=== PATIENT | male | born 1955 | race Caucasian/White ===

== ENCOUNTER 2020-06-14 08:16 | Inpatient (IN) | payer BC, OTHER ==
[2020-06-14] MEDS ORDERED: Nitroglycerin 2% Ointment 1 INCH/1 GM Packet ONE (08:32)
--- NOTE | 2020-06-14 08:37 | RAD ---
XR Chest 1 View Portable HISTORY: Chest pain COMPARISON: 07/10/2013 FINDINGS: The heart size is normal. The lungs are well expanded without focal areas of consolidation, pneumothorax or pleural effusions. IMPRESSION: No radiographic evidence of acute cardiopulmonary process.
[2020-06-14 08:50] LABS: #Eosinphils 0.1 thou/uL (0.0-0.7); #Lymphocytes 0.9 thou/uL (1.20-3.40); #Monocytes 0.8 thou/uL (0.11-0.59); #Neutrophils 9.8 thou/uL (1.40-6.50); %Basophils 0.1 % (0.0-1.0); %Eosinophils 0.6 % (0.0-10.0); %Lymphocytes 7.6 % (21.0-51.0); %Monocytes 6.7 % (0.0-10.0); Hemoglobin 16.8 g/dL (14.0-18.0); Mean Corpuscular HGB CONC 34.7 g/dL (32.0-36.0); Mean Corpuscular Hemoglobin 31.6 pg (27.0-31.0); Mean Corpuscular Volume 91.1 fL (78.0-98.0); Mean Platelet Volume 7.6 fL (7.4-10.4); Platelet Count 239 thou/uL (130-400); RBC Distribution Width 12.4 % (11.5-14.5); Red Blood Cell (RBC) Count 5.33 mill/uL (4.70-6.10); White Blood Cell (WBC) Count 11.5 thou/uL (4.8-10.8)
[2020-06-14 09:07] LABS: ALT (SGPT) 16 U/L (8-55); AST (SGOT) 17 U/L (5-34); Albumin 4.3 g/dL (3.4-4.8); Alkaline Phosphatase 79 U/L (40-110); Anion Gap 15 mmol/L (10-20); BUN (Urea Nitrogen) 13 mg/dL (8.4-25.7); Bilirubin, Total 0.9 mg/dL (0.2-1.2); CK (CPK) 118 U/L (30-200); Calc. Creatinine Clearance 0 mL/min (70-130); Calcium 9.4 mg/dL (7.8-10.44); Carbon Dioxide 25 mmol/L (23-31); Chloride 105 mmol/L (98-107); Estimated GFR-MDRD 57; Globulin 3.3 g/dL (2.4-3.5); Glucose 140 mg/dL (80-115); Lipase 16 U/L (8-78); Potassium 3.7 mmol/L (3.5-5.1); Protein, Total 7.6 g/dL (5.8-8.1); Sodium 141 mmol/L (136-145)
[2020-06-14] MEDS ORDERED: Fentanyl 100 MCG/2 ML VIAL ONE (09:31)
[2020-06-14] MEDS ORDERED: Enoxaparin Sodium 30 MG/0.3 ML SYRINGE ONE (11:25)
[2020-06-14] MEDS ORDERED: Enoxaparin Sodium 80 MG/0.8 ML SYRINGE ONE (11:25)
--- NOTE | 2020-06-14 11:34 | CT ---
CTA CHEST AND ABDOMEN WITH IV CONTRAST AND 3D POSTPROCESSING USING AORTIC DISSECTION PROTOCOL: Date: 06/14/2020 HISTORY: Chest pain. COMPARISON: CT chest with IV contrast dated 12/04/2016 and CTA abdomen dated 04/10/2016. FINDINGS: There are vascular calcifications without evidence of aneurysmal dilatation of the thoracoabdominal a nya. The aortic lumen is well opacified without internal flap to suggest dissection. There is good f low in the celiac axis, SMA and RISHABH. There is a mild stenosis at the origin of the left renal artery. Coronary artery calcifications are present. There is interval increase in size of the prevascular lymph node since 2017 measuring 10.0 mm. Pretra cheal lymph node is also enlarged measuring 11.0 mm. No pericardial or pleural effusions are seen. There are dependent changes in the lung bases. Bullous changes are again noted. There are patchy ground-glass opacities in the right lower lobe. Multiple liver cysts are again seen and stable since 2016. No calcified gallstones are present. The s olid organs are stable. No free air, free fluid, or lymphadenopathy seen in the abdomen. A normal noemi earing appendix is present. The small bowel loops are not abnormally dilated. There are degenerative changes in the thoracolumbar spine. IMPRESSION: 1. No CT evidence of aortic dissection. 2. Mild mediastinal lymphadenopathy. 3. Ground-glass infiltrates in the right lower lobe. 4. Liver cysts. 5. Mild left renal artery stenosis. POS: [facility]
--- NOTE | 2020-06-14 12:18 | PDOC.HHP ---
Hospitalist HPI - History of Present Illness Chest pain History of Present Illness: This is a 64-year-old male patient with a history of MT, moderate bilateral internal carotid stenosis, hypertension who presents for evaluation of substernal chest pain that has been intermittent this morning. The pain was located in the substernal area 10/10 intensity initially lasted a few minutes only to recur. The pain did not radiate and no association with nausea or diaphoresis. He took his full dose of aspirin. He notes having had intermittent cough for the past couple of days which has been nonproductive. Denies any associated fevers however had some shortness of breath with the chest pain. He presented to the ED for further evaluation. He denies any exposure to Covid Of note he had an Cardiac catheterization with drug-eluting stent placement was done on 07/10/2013 to the LAD. He has been on dual antiplatelet therapy with aspirin and clopidogrel with atorvastatin. He also has extensive atherosclerotic plaques of the left internal carotid artery with a greater than 70% stenosis noted on 11/13/2016. As presentation his blood pressure was 128/92, pulse 85, respiratory rate 25, temperature 99.4 saturating 95% on 2 L oxygen. His labs showed a troponin of 0.07, D-dimer 4.13 WBC elevated at 11.5. Chest x- ray showed no evidence of acute cardiopulmonary process. EKG showed sinus rhythm with premature atrial complexes, left atrial enlargement and left anterior fascicular block with left ventricular hypertrophy Given his high D-dimer he had a CTA for aortic dissection which showed no CT evidence of aortic dissection however notable for mild mediastinal lymphadenopathy, groundglass infiltrates in the right lower lobe of the lung, liver cysts and mild left renal artery stenosis. Covid test pending. He was given Lovenox 1 mg/kg, nitroglycerin. Hospitalist team was consulted for admission. Hospitalist ROS - Review of Systems Constitutional: denies: fever, chills, sweats, weakness Respiratory: reports: cough, dry, shortness of breath, SOB with excertion. denies: hemoptysis Gastrointestinal: denies: nausea, vomiting, abdominal pain, diarrhea Genitourinary: denies: dysuria, frequency, incontinence Neurological: denies: weakness, numbness, incoordination, change in speech Hospitalist History - Past Medical History Cardiac: reports: CAD, HTN, MT - Past Surgical History Past Surgical History: reports: Tonsillectomy Other Surgical History: Left knee surgery - Family History Family History: reports: diabetes mellitus, hypertension - Social History Smoking Status: Former smoker Alcohol: reports: None Living Situation: With Family - Exam General Appearance: awake alert ENT: normocephalic atraumatic Heart: no murmur, no gallops, no rubs, normal peripheral pulses Respiratory: no wheezes, no rales, no ronchi, no tachypnea Gastrointestinal: soft, non-tender, non-distended, normal bowel sounds Extremities: no cyanosis, no clubbing, 1+ LE edema Skin: normal turgor, no rashes Neurological: cranial nerve grossly intact, no weakness Psychiatric: normal affect, A&O x 3 Hospitalist Results - Labs Result Diagrams: 06/14/20 08:46 06/14/20 08:19 Lab results: WBC 11.5 thou/uL (4.8-10.8) H 06/14/20 08:46 Hgb 16.8 g/dL (14.0-18.0) 06/14/20 08:46 Hct 48.5 % (42.0-52.0) 06/14/20 08:46 MCV 91.1 fL (78.0-98.0) 06/14/20 08:46 Plt Count 239 thou/uL (130-400) 06/14/20 08:46 Neutrophils % 85.0 % (42.0-75.0) H 06/14/20 08:46 Sodium 141 mmol/L (136-145) 06/14/20 08:19 Potassium 3.7 mmol/L (3.5-5.1) 06/14/20 08:19 Chloride 105 mmol/L (98-107) 06/14/20 08:19 Carbon Dioxide 25 mmol/L (23-31) 06/14/20 08:19 BUN 13 mg/dL (8.4-25.7) 06/14/20 08:19 Creatinine 1.28 mg/dL (0.7-1.3) 06/14/20 08:19 Glucose 140 mg/dL (80-115) H 06/14/20 08:19 Calcium 9.4 mg/dL (7.8-10.44) 06/14/20 08:19 Total Bilirubin 0.9 mg/dL (0.2-1.2) 06/14/20 08:19 AST 17 U/L (5-34) 06/14/20 08:19 ALT 16 U/L (8-55) 06/14/20 08:19 Alkaline Phosphatase 79 U/L (40-110) 06/14/20 08:19 Creatine Kinase 118 U/L (30-200) 06/14/20 08:19 CK-MB (CK-2) 2.0 ng/mL (0-6.6) 06/14/20 08:20 Troponin I 0.070 ng/mL (< 0.028) H 06/14/20 08:20 Serum Total Protein 7.6 g/dL (5.8-8.1) 06/14/20 08:19 Albumin 4.3 g/dL (3.4-4.8) 06/14/20 08:19 Lipase 16 U/L (8-78) 06/14/20 08:19 Hospitalist H&P A/P - Plan Plan: 64-year-old male patient with a history of MT, status post CELINA stent presenting with intermittent chest pain, mild dyspnea with concerns for NSTEMI NSTEMI Troponin elevatedwe will trend Continue on DAPT and Lovenox Consult cardiology Acute hypoxic respiratory failure Possibly viral/bacterial pneumonia As needed oxygen Possible right lower lobe pneumonia Groundglass infiltrates noted on right lower lobe on CT Also has leukocytosis Possibly Covid Start ceftriaxone and azithromycin for now Follow-up on Covid results Mild mediastinal lymphadenopathy Likely reactive Possible viral infection Carotid artery disease Continue on DAPT Mild lymphadenopathy Possibly reactive Multiple hepatic cyst Stable from 2015 DVT prophylaxistherapeutic on Lovenox CODE STATUSfull code
[2020-06-14] MEDS ORDERED: Iopamidol-370 76% 500 ML 1 ML ONE (14:10)
[2020-06-14 15:18] LABS: Troponin I 0.106 ng/mL (< 0.028)
[2020-06-14 16:46] VITALS: BMI 28.3
[2020-06-14] MEDS ORDERED: Acetaminophen 325 MG TAB PO PRN (19:47)
[2020-06-14] MEDS ORDERED: Carvedilol 3.125 MG TAB PO SCH (21:00)
[2020-06-14] MEDS: cefTRIAXone\\ROCEPHIN 1 GM in Sodium Chloride 0.9% 100 ML IVPB SCH (21:22)
[2020-06-14] MEDS: Enoxaparin Sodium 120 MG/0.8 ML SYRINGE SC SCH (21:27)
[2020-06-14] MEDS: Azithromycin 500 MG in Sodium Chloride 0.9% 250 ML 250 ML IVPB SCH (21:55)
[2020-06-14] MEDS ORDERED: Carvedilol 6.25 MG TAB PO SCH (23:15)
[2020-06-15 07:52] LABS: #Basophils 0.1 thou/uL (0.0-0.2); #Eosinphils 0.1 thou/uL (0.0-0.7); #Lymphocytes 1.4 thou/uL (1.20-3.40); %Basophils 0.5 % (0.0-1.0); %Eosinophils 0.9 % (0.0-10.0); %Lymphocytes 14.5 % (21.0-51.0); %Monocytes 10.8 % (0.0-10.0); %Neutrophils 73.3 % (42.0-75.0); Hemoglobin 14.3 g/dL (14.0-18.0); Mean Corpuscular HGB CONC 31.9 g/dL (32.0-36.0); Mean Corpuscular Hemoglobin 29.2 pg (27.0-31.0); Mean Corpuscular Volume 91.5 fL (78.0-98.0); Mean Platelet Volume 7.5 fL (7.4-10.4); Platelet Count 204 thou/uL (130-400); RBC Distribution Width 12.4 % (11.5-14.5); Red Blood Cell (RBC) Count 4.91 mill/uL (4.70-6.10); White Blood Cell (WBC) Count 9.6 thou/uL (4.8-10.8)
[2020-06-15 08:07] LABS: Anion Gap 11 mmol/L (10-20); BUN (Urea Nitrogen) 15 mg/dL (8.4-25.7); Calc. Creatinine Clearance 91 mL/min (70-130); Carbon Dioxide 26 mmol/L (23-31); Chloride 105 mmol/L (98-107); Estimated GFR-MDRD 60; Glucose 106 mg/dL (80-115); Potassium 3.4 mmol/L (3.5-5.1); Sodium 139 mmol/L (136-145)
[2020-06-15] MEDS: Enoxaparin Sodium 120 MG/0.8 ML SYRINGE SC SCH ×3 (08:24→20:58)
[2020-06-15] MEDS: Aspirin 325 mg Enteric Coated Tablet PO SCH (08:24)
[2020-06-15] MEDS: Clopidogrel Bisulfate 75 MG TAB PO SCH (08:24)
[2020-06-15] MEDS: Atorvastatin Calcium 40 MG TAB PO SCH (08:24)
[2020-06-15] MEDS ORDERED: FLU VACC QS2020-21(6MOS UP)/PF 60 MCG/0.5 ML SYRINGE IM ONE (09:00)
[2020-06-15] MEDS ORDERED: Prevnar 13-Val Conj/PF 0.5 ML SYRINGE IM ONE (09:00)
[2020-06-15] MEDS ORDERED: Carvedilol 6.25 MG TAB PO SCH (09:00)
[2020-06-15 10:22] LABS: Bacteria/HPF None Seen HPF (None Seen); Bilirubin Negative (Negative); Clarity Clear (Clear); Glucose, Urine (Dipstick) Normal (Negative); Ketone, Urine Negative (Negative); Leukocyte Negative Leu/uL (Negative); Mucous/LPF 3+ LPF (<2+); Nitrite Negative (Negative); Protein, Urine (Dipstick) 30 mg/dL (Neg-Trace); Specific Gravity, Urine 1.035 (1.002-1.036); Squamous Epithelial None Seen HPF (0-3); Urobilinogen Normal mg/dL (Less than 2); WBC/HPF 0-3 HPF (0-3)
[2020-06-15 10:23] LABS: Blood, Urine Trace (Negative)
[2020-06-15 10:24] LABS: Urine Culture Reflex No No
[2020-06-15 11:58] LABS: SARS-CoV-2 MS2 Positive; SARS-CoV-2 N Gene Negative; SARS-CoV-2 S Gene Negative; SARS-CoV-2 by NAA Not Detected (NotDetected); SARS-CoV-2 orf1ab Negative
[2020-06-15 12:29] LABS: HBSAg Index 0.26 S/CO (0-0.99); HIV (1/2) Antibody/Antigen Non-Reactive (NonReactive); HIV 1/2 INDEX 0.19 S/CO (<1.00); Hep B Surf Ag Non-Reactive S/CO (NonReactive)
[2020-06-15 14:03] LABS: Hep C IgG Ab Reflex HepC Qnt (NonReactive)
[2020-06-15 14:04] LABS: Hep C Index 1.08 S/CO (0-0.79)
[2020-06-15] MEDS ORDERED: Communication Order-Pharmacy FS SCH (14:15)
--- NOTE | 2020-06-15 15:20 | CON ---
DATE OF CONSULTATION: 06/15/2020 REASON FOR CONSULTATION: Non ST elevation myocardial infarction. HISTORY OF PRESENT ILLNESS: Mr. Gasca is a 64-year-old gentleman, who had an anterior myocardial infarction in 2012. The patient presented with an acute anterior myocardial infarction, went to the skilled laborer on an emergency basis, had a completely occluded proximal LAD, and a 3.0 x 18 mm drug-coated stent placed, post dilated 3.5 x 12 proximally. He also has some distal disease in his LAD, 70% obtuse marginal 1 lesion, 50% stenosis in the right coronary artery. The patient is noted to have a right bundle-branch block at that point with the infarction. The patient does not come back to see us for several years. He believes it is about 5 years since he came back for any followup with us. He said he has done well. He quit smoking with the infarction and he resumed smoking that he has been off smoking now for a couple of years. He has been taking the medication as will be outlined below. Otherwise, the patient has been doing well up until yesterday. He had the onset of pressure, discomfort in his chest, came to the emergency room, found to have a slight increased troponin as will be outlined below. He was given Lovenox, is pain-free now. MEDICATIONS: At home; 1. Lisinopril 40 mg twice a day. 2. Atorvastatin 40 mg a day. 3. Plavix 75 mg a day. 4. Carvedilol 6.25 mg twice a day. 5. Aspirin 325 mg a day. 6. Procardia XL 90 mg a day. 7. Magnesium oxide. 8. Hydrochlorothiazide. ALLERGIES: NONE KNOWN. SOCIAL HISTORY: He has mentioned that he quit smoking. He is . 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 Currently, she is teaching. REVIEW OF SYSTEMS: CONSTITUTIONAL: No significant weight gain or loss. VISION: No changes. HEARING: No changes. PULMONARY: Some pain with a deep breath. CARDIAC: As outlined above. SKIN: No rashes. NEUROLOGIC: No unilateral weakness or numbness. PSYCHIATRIC: No unusual depression or anxiety. The patient does note that when he exerts himself, he does get pain in his calves bilaterally that he walks up a hill. DIAGNOSTIC STUDIES: EKG sinus rhythm, frequent premature atrial contractions, left axis deviation, probably old septal infarct. The patient has also been known to have bilateral carotid arterial disease. PERTINENT LABORATORY DATA: Troponin level 0.110. Peak potassium 3.4. Most recent LDL cholesterol was 84 back in 2014. ASSESSMENT: 1. Status post ST-elevation myocardial infarction in 2012, treated with emergency stent implantation. 2. History of hypercholesterolemia. 3. History of hypertension. 4. Carotid arterial disease. 5. Peripheral vascular disease. 6. Left axis deviation. 7. History of smoking. Fortunately, he has stopped again. 8. Non ST elevation myocardial infarction on this occasion. PLAN: 1. He is on Lovenox. 2. Continue dual anti-platelet drugs. 3. Echocardiogram. 4. Repeat carotid Dopplers. 5. Proceed to cardiac catheterization on Thursday. The patient did receive Lovenox at about 8:30 this morning. Therefore, it is not really feasible to do elective catheterization today and he is pain-free. The risks of catheterization including stroke, heart attack, iodine allergy, interference of blood supply to leg or kidney, stent thrombosis, stent restenosis were all discussed with the patient. He understands and wishes to proceed. 6. We will also check lipids. 7. Check carotid Dopplers. 8. Echocardiogram. Job ID: [id number]
[2020-06-15] MEDS ORDERED: Polyethylene Glycol 3350 17 GM Packet PO PRN (16:32)
[2020-06-15] MEDS: cefTRIAXone\\ROCEPHIN 1 GM in Sodium Chloride 0.9% 100 ML IVPB SCH (20:59)
[2020-06-15] MEDS ORDERED: Lisinopril 5 MG TAB PO SCH (21:00)
[2020-06-15] MEDS: Carvedilol 6.25 MG TAB PO SCH (21:04)
[2020-06-15] MEDS: Azithromycin 500 MG in Sodium Chloride 0.9% 250 ML 250 ML IVPB SCH (22:05)
--- NOTE | 2020-06-15 23:28 | PDOC.HOSPP ---
- Subjective Encounter Date: 06/15/20 Encounter Time: 14:00 Subjective: Patient seen and examined for chest discomfort. No new episode of chest pain. No palpitations or lightheadedness. - Objective Vital Signs & Weight: Vital Signs (12 hours) Temp Pulse Resp BP Pulse Ox 06/15/20 23:22 100.4 F H 81 18 146/81 H 97 06/15/20 20:54 99.3 F 78 18 130/68 96 06/15/20 16:00 98.6 F 98 15 152/84 H 96 Weight Weight 232 lb 14.4 oz I&O: 06/14/20 06/15/20 06/16/20 06:59 06:59 06:59 Intake Total 780 510 Output Total 0 Balance 780 510 Result Diagrams: 06/15/20 07:40 06/15/20 07:40 Additional Labs: Abnormal Lab Results - Last 48 hrs 06/14/20 08:20: Troponin I 0.070 H 06/14/20 08:20: D-Dimer 1.13 H 06/14/20 08:46: WBC 11.5 H, MCH 31.6 H, Neutrophils % 85.0 H, Lymphocytes % 7.6 L, Neutrophils # 9.8 H, Lymphocytes # 0.9 L, Monocytes # 0.8 H 06/14/20 11:50: Troponin I 0.110 H 06/14/20 14:33: Troponin I 0.106 H 06/15/20 07:40: Potassium 3.4 L 06/15/20 07:40: MCHC 31.9 L, Lymphocytes % 14.5 L, Monocytes % 10.8 H, Neutrophils # 7.0 H, Monocytes # 1.0 H 06/15/20 08:51: Urine Protein 30 A, Urine Blood Trace A, Urine RBC 7-10 A, Urine Mucus 3+ A 06/15/20 11:36: Hepatitis C Antibody Reflex HepC Qnt H EKG Reviewed by me: Yes (Sinus rhythm on telemetry) Hospitalist ROS - Review of Systems Respiratory: denies: cough, dry, shortness of breath, hemoptysis, SOB with excertion, pleuritic pain, sputum, wheezing, other Cardiovascular: denies: chest pain, palpitations, orthopnea, paroxysmal noc. dyspnea, edema, light headedness, other - Medication Medications: Active Medications Generic Name Dose Route Start Last Admin Trade Name Freq PRN Reason Stop Dose Admin Acetaminophen 650 mg 06/14/20 19:47 06/14/20 21:23 Acetaminophen 325 Mg Tab PO 650 mg Q4H PRN Administration Headache/Fever or Pain Aspirin 325 mg 06/15/20 09:00 06/15/20 08:24 Aspirin 325 Mg Enteric Coated Tablet PO 325 mg DAILY ANGELO Administration Atorvastatin Calcium 40 mg 06/15/20 09:00 06/15/20 08:24 Atorvastatin Calcium 40 Mg Tab PO 40 mg DAILY ANGELO Administration Carvedilol 6.25 mg 06/15/20 21:00 06/15/20 21:04 Carvedilol 6.25 Mg Tab PO 6.25 mg BID ANGELO Administration Clopidogrel Bisulfate 75 mg 06/15/20 09:00 06/15/20 08:24 Clopidogrel Bisulfate 75 Mg Tab PO 75 mg DAILY ANGELO Administration Enoxaparin Sodium 120 mg 06/14/20 21:00 06/15/20 20:58 Enoxaparin Sodium 120 Mg/0.8 Ml Syringe SC 06/17/20 23:00 120 mg 0900,2100 ANGELO Administration Azithromycin 500 mg/ Sodium 250 mls @ 250 mls/hr 06/14/20 21:30 06/15/20 22:05 Chloride IVPB 250 mls Q24HR ANGELO Administration Ceftriaxone Sodium 1 gm/ 100 mls @ 200 mls/hr 06/14/20 21:00 06/15/20 20:59 Sodium Chloride IVPB 100 mls Q24HR ANGELO Administration Sodium Chloride 10 ml 06/15/20 09:00 06/15/20 21:05 Flush - Normal Saline 10 Ml Syringe IVF 10 ml Q12HR ANGELO Administration - Exam General Appearance: NAD Neck: supple, no JVD Heart: RRR, no gallops Respiratory: no wheezes, no ronchi Gastrointestinal: soft, non-tender, normal bowel sounds Extremities: no cyanosis, no clubbing Skin: normal turgor Hosp A/P - Plan DVT proph w/lovenox, DVT proph w/SCDs Chest pain consistent with unstable angina Sepsis due to right lower lobe pneumonia? Gram-negative Coronary artery disease s/p ST elevation [place] Carotid artery disease/PAD Hypertension History of tobacco abuse Hyperlipidemia CKD stage III Plan: Continue aspirin, Plavix with Lovenox per cardiology. Continue beta-blockers with statins. Hold KIANA inhibitor due to relative hypotension. Continue ceftriaxone with azithromycin. Recheck labs in a.m. Continue other medications as above. Patient understands the above plan of care.
[2020-06-16 04:53] LABS: #Eosinphils 0.1 thou/uL (0.0-0.7); #Lymphocytes 1.5 thou/uL (1.20-3.40); #Monocytes 0.9 thou/uL (0.11-0.59); #Neutrophils 5.9 thou/uL (1.40-6.50); %Basophils 0.4 % (0.0-1.0); %Eosinophils 1.4 % (0.0-10.0); %Lymphocytes 17.6 % (21.0-51.0); %Monocytes 10.1 % (0.0-10.0); %Neutrophils 70.5 % (42.0-75.0); Hemoglobin 14.4 g/dL (14.0-18.0); Mean Corpuscular HGB CONC 33.7 g/dL (32.0-36.0); Mean Corpuscular Hemoglobin 30.6 pg (27.0-31.0); Mean Corpuscular Volume 90.6 fL (78.0-98.0); Mean Platelet Volume 7.8 fL (7.4-10.4); Platelet Count 182 thou/uL (130-400); RBC Distribution Width 12.2 % (11.5-14.5); Red Blood Cell (RBC) Count 4.72 mill/uL (4.70-6.10); White Blood Cell (WBC) Count 8.4 thou/uL (4.8-10.8)
[2020-06-16 05:16] LABS: Anion Gap 15 mmol/L (10-20); BUN (Urea Nitrogen) 17 mg/dL (8.4-25.7); Calc. Creatinine Clearance 94 mL/min (70-130); Carbon Dioxide 22 mmol/L (23-31); Cardiac Risk 3.9 (Less than 4.5); Chloride 107 mmol/L (98-107); Cholesterol 141 mg/dl (< 200 Desired); Estimated GFR-MDRD 62; Glucose 93 mg/dL (80-115); HDL Cholesterol 36 mg/dL (>60 Neg Risk); LDL Cholesterol, Calculated 88 mg/dL; Potassium 3.5 mmol/L (3.5-5.1); Sodium 140 mmol/L (136-145); Triglycerides 85 mg/dL (Less than 150)
[2020-06-16] MEDS: Carvedilol 6.25 MG TAB PO SCH ×2 (09:08→20:34)
[2020-06-16] MEDS: Atorvastatin Calcium 40 MG TAB PO SCH (09:08)
[2020-06-16] MEDS: NIFEdipine XL 60 MG TAB PO SCH (09:08)
[2020-06-16] MEDS: Clopidogrel Bisulfate 75 MG TAB PO SCH (09:09)
[2020-06-16] MEDS: Aspirin 325 mg Enteric Coated Tablet PO SCH (09:09)
[2020-06-16] MEDS: Enoxaparin Sodium 120 MG/0.8 ML SYRINGE SC SCH ×2 (09:09→20:35)
--- NOTE | 2020-06-16 16:19 | PDOC.HOSPP ---
- Subjective Encounter Date: 06/16/20 Subjective: Patient denies chest pain or shortness of breath. - Objective Vital Signs & Weight: Vital Signs (12 hours) Temp Pulse Resp BP BP Pulse Ox 06/16/20 15:46 98.8 F 66 18 141/75 H 97 06/16/20 11:44 97.9 F 68 19 142/73 H 96 06/16/20 09:08 72 170/97 H 06/16/20 07:51 98.1 F 72 20 170/97 H 98 Weight Weight 229 lb 1.6 oz I&O: 06/15/20 06/16/20 06/17/20 06:59 06:59 05:59 Intake Total 780 510 Output Total 0 Balance 780 510 Result Diagrams: 06/16/20 04:23 06/16/20 04:23 Hospitalist ROS - Medication Medications: Active Medications Generic Name Dose Route Start Last Admin Trade Name Freq PRN Reason Stop Dose Admin Acetaminophen 650 mg 06/14/20 19:47 06/14/20 21:23 Acetaminophen 325 Mg Tab PO 650 mg Q4H PRN Administration Headache/Fever or Pain Aspirin 325 mg 06/15/20 09:00 06/16/20 09:09 Aspirin 325 Mg Enteric Coated Tablet PO 325 mg DAILY ANGELO Administration Atorvastatin Calcium 40 mg 06/15/20 09:00 06/16/20 09:08 Atorvastatin Calcium 40 Mg Tab PO 40 mg DAILY ANGELO Administration Carvedilol 6.25 mg 06/15/20 21:00 06/16/20 09:08 Carvedilol 6.25 Mg Tab PO 6.25 mg BID ANGELO Administration Clopidogrel Bisulfate 75 mg 06/15/20 09:00 06/16/20 09:09 Clopidogrel Bisulfate 75 Mg Tab PO 75 mg DAILY ANGELO Administration Enoxaparin Sodium 120 mg 06/14/20 21:00 06/16/20 09:09 Enoxaparin Sodium 120 Mg/0.8 Ml Syringe SC 06/17/20 23:00 120 mg 0900,2100 ANGELO Administration Azithromycin 500 mg/ Sodium 250 mls @ 250 mls/hr 06/14/20 21:30 06/15/20 22:05 Chloride IVPB 250 mls Q24HR ANGELO Administration Ceftriaxone Sodium 1 gm/ 100 mls @ 200 mls/hr 06/14/20 21:00 06/15/20 20:59 Sodium Chloride IVPB 100 mls Q24HR ANGELO Administration Nifedipine 60 mg 06/16/20 09:00 06/16/20 09:08 Nifedipine Xl 60 Mg Tab PO 60 mg DAILY ANGELO Administration Sodium Chloride 10 ml 06/15/20 09:00 06/16/20 09:11 Flush - Normal Saline 10 Ml Syringe IVF 10 ml Q12HR ANGELO Administration - Exam General Appearance: awake alert ENT: normocephalic atraumatic Neck: supple, no JVD Heart: RRR, no murmur, no gallops, no rubs Respiratory: CTAB, no wheezes, no rales, no ronchi Extremities: no cyanosis, no clubbing Neurological: cranial nerve grossly intact, no new deficit Hosp A/P - Plan Chest pain consistent with unstable angina Sepsis due to right lower lobe pneumonia? Gram-negative Coronary artery disease s/p ST elevation [place] Carotid artery disease/PAD Hypertension History of tobacco abuse Hyperlipidemia CKD stage III Plan: Continue aspirin, Plavix , beta-blockers and statins. Hold KIANA inhibitor due to relative hypotension. Continue ceftriaxone with azithromycin. Plan for cardiac cath on Thursday.
--- NOTE | 2020-06-16 18:41 | ULT ---
CAROTID DOPPLER: 06/16/20 PROVIDED CLINICAL HISTORY: Chest pain. FINDINGS: Martell scale and color Doppler sonography and spectral analysis was performed of the extracranial carot id system bilaterally. There is diffuse intimal thickening and scattered areas of atherosclerotic monroe que involving both carotid systems. There is elevation of peak systolic velocity within the right dis ramiro internal carotid artery to 128 cm/s with an ICA to CCA ratio of about 1.3. There is elevation of peak systolic velocity involving the distal left internal carotid artery to 210 cm/s with a correspon ding ICA to CCA ratio of 3.5. Antegrade flow is seen in the vertebral arteries. IMPRESSION: Findings suggesting bilateral distal internal carotid arteries stenosis, 50-69%. POS: [facility]
[2020-06-16] MEDS: cefTRIAXone\\ROCEPHIN 1 GM in Sodium Chloride 0.9% 100 ML IVPB SCH (20:34)
[2020-06-16] MEDS: Azithromycin 500 MG in Sodium Chloride 0.9% 250 ML 250 ML IVPB SCH (20:58)
[2020-06-17] MEDS ORDERED: Lisinopril 10 MG TAB PO PRN (09:00)
[2020-06-17] MEDS: Aspirin 325 mg Enteric Coated Tablet PO SCH (09:44)
[2020-06-17] MEDS: NIFEdipine XL 60 MG TAB PO SCH (09:44)
[2020-06-17] MEDS: Carvedilol 6.25 MG TAB PO SCH ×2 (09:44→20:40)
[2020-06-17] MEDS: Atorvastatin Calcium 40 MG TAB PO SCH (09:44)
[2020-06-17] MEDS: Clopidogrel Bisulfate 75 MG TAB PO SCH (09:44)
[2020-06-17] MEDS: Enoxaparin Sodium 120 MG/0.8 ML SYRINGE SC SCH ×2 (09:44→20:46)
--- NOTE | 2020-06-17 10:40 | PDOC.HOSPP ---
- Subjective Encounter Date: 06/17/20 Subjective: The patient denies any new complaints today. - Objective Vital Signs & Weight: Vital Signs (12 hours) Temp Pulse Resp BP BP Pulse Ox 06/17/20 07:45 98.4 F 62 18 161/81 H 96 06/17/20 05:10 98 F 63 16 139/70 95 Weight Weight 229 lb 3.2 oz I&O: 06/16/20 06/17/20 06/18/20 07:59 06:59 06:59 Intake Total Balance Result Diagrams: 06/16/20 04:23 06/16/20 04:23 Hospitalist ROS - Medication Medications: Active Medications Generic Name Dose Route Start Last Admin Trade Name Freq PRN Reason Stop Dose Admin Acetaminophen 650 mg 06/14/20 19:47 06/14/20 21:23 Acetaminophen 325 Mg Tab PO 650 mg Q4H PRN Administration Headache/Fever or Pain Aspirin 325 mg 06/15/20 09:00 06/17/20 09:44 Aspirin 325 Mg Enteric Coated Tablet PO 325 mg DAILY ANGELO Administration Atorvastatin Calcium 40 mg 06/15/20 09:00 06/17/20 09:44 Atorvastatin Calcium 40 Mg Tab PO 40 mg DAILY ANGELO Administration Carvedilol 6.25 mg 06/15/20 21:00 06/17/20 09:44 Carvedilol 6.25 Mg Tab PO 6.25 mg BID ANGELO Administration Clopidogrel Bisulfate 75 mg 06/15/20 09:00 06/17/20 09:44 Clopidogrel Bisulfate 75 Mg Tab PO 75 mg DAILY ANGELO Administration Enoxaparin Sodium 120 mg 06/14/20 21:00 06/17/20 09:44 Enoxaparin Sodium 120 Mg/0.8 Ml Syringe SC 06/17/20 23:00 120 mg 0900,2100 ANGELO Administration Azithromycin 500 mg/ Sodium 250 mls @ 250 mls/hr 06/14/20 21:30 06/16/20 20:58 Chloride IVPB 250 mls Q24HR ANGELO Administration Ceftriaxone Sodium 1 gm/ 100 mls @ 200 mls/hr 06/14/20 21:00 06/16/20 20:34 Sodium Chloride IVPB 100 mls Q24HR ANGELO Administration Nifedipine 60 mg 06/16/20 09:00 06/17/20 09:44 Nifedipine Xl 60 Mg Tab PO 60 mg DAILY ANGELO Administration Sodium Chloride 10 ml 06/15/20 09:00 06/17/20 09:45 Flush - Normal Saline 10 Ml Syringe IVF 10 ml Q12HR ANGELO Administration - Exam General Appearance: awake alert ENT: normocephalic atraumatic Neck: supple, no JVD Heart: RRR Respiratory: normal chest expansion, no tachypnea Extremities: no cyanosis, no clubbing Neurological: cranial nerve grossly intact, no new deficit Hosp A/P - Plan Chest pain consistent with unstable angina Sepsis due to right lower lobe pneumonia? Gram-negative Coronary artery disease s/p ST elevation [place] Carotid artery disease/PAD Hypertension History of tobacco abuse Hyperlipidemia CKD stage III Plan: Continue aspirin, Plavix , beta-blockers and statins. Patient's blood pressure is now elevated. Lisinopril has been restarted. Continue ceftriaxone with azithromycin. Plan for cardiac cath tomorrow
[2020-06-17] MEDS: cefTRIAXone\\ROCEPHIN 1 GM in Sodium Chloride 0.9% 100 ML IVPB SCH (20:45)
[2020-06-17] MEDS: Azithromycin 500 MG in Sodium Chloride 0.9% 250 ML 250 ML IVPB SCH (22:04)
[2020-06-18] MEDS: NIFEdipine XL 60 MG TAB PO SCH (05:13)
[2020-06-18] MEDS: Carvedilol 6.25 MG TAB PO SCH ×2 (05:13→18:16)
[2020-06-18] MEDS: Clopidogrel Bisulfate 75 MG TAB PO SCH (05:13)
[2020-06-18] MEDS: Aspirin 325 mg Enteric Coated Tablet PO SCH (05:13)
[2020-06-18] MEDS: Sodium Chloride 0.9% 1,000 ML IV SCH ×2 (05:13→18:06)
[2020-06-18] MEDS: Atorvastatin Calcium 40 MG TAB PO SCH (05:13)
[2020-06-18] MEDS ORDERED: NIFEdipine XL 60 MG TAB PO SCH (07:36)
[2020-06-18] MEDS: NIFEdipine XL 90 MG TAB PO SCH (08:22)
[2020-06-18] MEDS ORDERED: Midazolam HCl 2 mg/2 ml Vial ONE (08:39)
[2020-06-18] MEDS ORDERED: Fentanyl 100 MCG/2 ML VIAL ONE (08:39)
[2020-06-18] MEDS ORDERED: Metoprolol Tartrate 5 MG/5 ML VIAL ONE (08:45)
[2020-06-18] MEDS ORDERED: Sodium Chloride 0.9% 200 ML IV PRN (09:19)
[2020-06-18] MEDS ORDERED: Nitroglycerin 0.4 MG TAB (25 Tab Bottle) SL PRN (09:19)
[2020-06-18] MEDS ORDERED: Acetaminophen/Codeine 30-300mg Tablet PO PRN ×2 (09:19)
[2020-06-18] MEDS ORDERED: Iopamidol 370 76% 100 ML VIAL ONE (11:52)
[2020-06-18 12:37] LABS: Hep C PCR-Quant HCV Not Detected IU/mL (.)
--- NOTE | 2020-06-18 15:31 | PDOC.HOSPP ---
- Subjective Encounter Date: 06/18/20 Subjective: Status post cardiac catheterization. The patient denies any chest pain or shortness of breath at this time. - Objective Vital Signs & Weight: Vital Signs (12 hours) Temp Pulse Resp BP BP Pulse Ox 06/18/20 07:30 98.5 F 74 18 158/89 H 99 06/18/20 05:13 68 185/91 H Weight Weight 231 lb I&O: 06/17/20 06/18/20 06/19/20 06:59 06:59 06:59 Intake Total 470 Balance 470 Result Diagrams: 06/16/20 04:23 06/16/20 04:23 Hospitalist ROS - Medication Medications: Active Medications Generic Name Dose Route Start Last Admin Trade Name Freq PRN Reason Stop Dose Admin Acetaminophen 650 mg 06/14/20 19:47 06/14/20 21:23 Acetaminophen 325 Mg Tab PO 650 mg Q4H PRN Administration Headache/Fever or Pain Aspirin 325 mg 06/15/20 09:00 06/18/20 05:13 Aspirin 325 Mg Enteric Coated Tablet PO 325 mg DAILY ANGELO Administration Atorvastatin Calcium 40 mg 06/15/20 09:00 06/18/20 05:13 Atorvastatin Calcium 40 Mg Tab PO 40 mg DAILY ANGELO Administration Clopidogrel Bisulfate 75 mg 06/15/20 09:00 06/18/20 05:13 Clopidogrel Bisulfate 75 Mg Tab PO 75 mg DAILY ANGELO Administration Azithromycin 500 mg/ Sodium 250 mls @ 250 mls/hr 06/14/20 21:30 06/17/20 22:04 Chloride IVPB 250 mls Q24HR ANGELO Administration Ceftriaxone Sodium 1 gm/ 100 mls @ 200 mls/hr 06/14/20 21:00 06/17/20 20:45 Sodium Chloride IVPB 100 mls Q24HR ANGELO Administration Sodium Chloride 1,000 mls @ 100 mls/hr 06/18/20 06:00 06/18/20 05:13 Normal Saline 0.9% IV 1,000 mls .Q10H ANGELO Administration Nifedipine 90 mg 06/18/20 09:00 06/18/20 08:22 Nifedipine Xl 90 Mg Tab PO 90 mg DAILY ANGELO Administration Sodium Chloride 10 ml 06/15/20 09:00 06/18/20 05:14 Flush - Normal Saline 10 Ml Syringe IVF 10 ml Q12HR ANGELO Administration - Exam ENT: normocephalic atraumatic, no oropharyngeal lesions Neck: supple, no JVD Respiratory: normal chest expansion, no tachypnea Extremities: no cyanosis, no clubbing Neurological: no weakness, no focal deficits Hosp A/P - Plan Chest pain consistent with unstable angina Sepsis due to right lower lobe pneumonia? Gram-negative Coronary artery disease s/p ST elevation [place] Carotid artery disease/PAD Hypertension History of tobacco abuse Hyperlipidemia CKD stage III Plan: Status post cardiac cath which did not show any significant stenosis requiring intervention. Continue comanagement with aspirin, Plavix , carvedilol, lisinopril and statin. Evidence of sepsis. Continue current antibiotics.
[2020-06-18] MEDS: cefTRIAXone\\ROCEPHIN 1 GM in Sodium Chloride 0.9% 100 ML IVPB SCH (20:30)
[2020-06-18] MEDS: Lisinopril 20 MG TAB PO SCH (20:30)
[2020-06-18] MEDS: Azithromycin 500 MG in Sodium Chloride 0.9% 250 ML 250 ML IVPB SCH (21:25)
[2020-06-19] MEDS: Sodium Chloride 0.9% 1,000 ML IV SCH ×2 (03:59→11:01)
[2020-06-19] MEDS: Carvedilol 6.25 MG TAB PO SCH (08:54)
[2020-06-19] MEDS: NIFEdipine XL 90 MG TAB PO SCH (08:55)
[2020-06-19] MEDS: Lisinopril 20 MG TAB PO SCH (08:55)
[2020-06-19] MEDS: Clopidogrel Bisulfate 75 MG TAB PO SCH (08:55)
[2020-06-19] MEDS: Aspirin 325 mg Enteric Coated Tablet PO SCH (08:55)
[2020-06-19] MEDS: Atorvastatin Calcium 40 MG TAB PO SCH (08:55)
[2020-06-19] MEDS ORDERED: Ezetimibe 10 MG TAB PO SCH (09:00)
--- NOTE | 2020-06-19 09:39 | PRG ---
DATE OF SERVICE: 06/19/2020 SUBJECTIVE: Mr. Gasca is feeling well. No chest pain or pressure. OBJECTIVE: VITAL SIGNS: Blood pressure . LUNGS: Clear. CARDIAC: Normal S1 and normal S2. ABDOMEN: Soft and nontender. ASSESSMENT: 1. Coronary artery disease best treated medically. 2. Moderately depressed left ventricular function. PLAN: 1. He is on carvedilol 12.5 mg twice a day. 2. Lisinopril 20 mg twice a day. 3. Nifedipine long-acting, Procardia XL 90 mg a day. 4. Aspirin. 5. Plavix. 6. Atorvastatin 40 mg a day. 7. Zetia 10 mg a day come back and see us in the office in about a month. Job ID: [id number]
[2020-06-19 11:33] VITALS: BP 141/79; TEMP 96.7
--- NOTE | 2020-06-20 03:07 | DIS ---
DATE OF ADMISSION: 06/15/2020 DATE OF DISCHARGE: 06/19/2020 DISCHARGE DIAGNOSES: 1. Non-ST elevation myocardial infarction. 2. Heart failure with reduced ejection fraction, chronic. 3. Coronary artery disease. 4. Hypertension. 5. Hyperlipidemia. 6. Chronic kidney disease, stage 3. DISCHARGE MEDICATIONS: 1. Aspirin 325 mg orally daily. 2. Atorvastatin 40 mg orally daily. 3. Carvedilol 12.5 mg orally twice daily. 4. Plavix 75 mg orally daily. 5. Ezetimibe 10 mg orally nightly. 6. Nifedipine 10 mg orally daily. 7. Hydrochlorothiazide 50 mg orally daily. 8. Lisinopril 40 mg orally daily. HISTORY OF PRESENT ILLNESS AND HOSPITAL COURSE: The patient is a 64-year-old male with past medical history of coronary artery disease, who presented to the hospital with complaints of chest pain. His initial troponin was slightly elevated at 0.07, but that trended up to 0.1. The patient was evaluated by Cardiology and underwent cardiac catheterization, which showed left ventricular ejection fraction of 40% with severe apical hypokinesis, left main was normal, proximal LAD stent patent with good flow, mid LAD present with collaterals from RCA, circumflex normal, RCA right dominant with 40% to 50% mid stenosis and 50% PDA stenosis. Medical therapy was recommended as noted above. Job ID: [id number]
== END 2020-06-19 15:06 | disposition home or self-care (01) | DRG 871 ==
LOC: ERS 08:16 → ERHOLD 11:38 → UNDOADMOB 12:25 → 2NO 16:36 → OBSVTOIN 06-15 16:23
PROVIDERS: ADMIT Student in an Organized Health Care Education/Training Program; ATTEND Internal Medicine
PROC: 4A023N7 Measurement of Cardiac Sampling and Pressure, Left Heart, Percutaneous Approach (ICD-10-PCS; principal; 2020-06-18)
PROC: B2111ZZ Fluoroscopy of Multiple Coronary Arteries using Low Osmolar Contrast (ICD-10-PCS; 2020-06-18)
PROC: B2151ZZ Fluoroscopy of Left Heart using Low Osmolar Contrast (ICD-10-PCS; 2020-06-18)
DX: A41.50 Gram-negative sepsis, unspecified (principal); I21.4 Non-ST elevation (NSTEMI) myocardial infarction; J96.01 Acute respiratory failure with hypoxia; J15.6 Pneumonia due to other Gram-negative bacteria; I50.22 Chronic systolic (congestive) heart failure; I13.0 Hypertensive heart and chronic kidney disease with heart failure and stage 1 through stage 4 chronic kidney disease, or unspecified chronic kidney disease; Z20.828 Contact with and (suspected) exposure to other viral communicable diseases; I25.10 Atherosclerotic heart disease of native coronary artery without angina pectoris; N18.30 Chronic kidney disease, stage 3 unspecified; K76.89 Other specified diseases of liver; E78.00 Pure hypercholesterolemia, unspecified; I73.9 Peripheral vascular disease, unspecified; I45.10 Unspecified right bundle-branch block; Z28.21 Immunization not carried out because of patient refusal; I25.2 Old myocardial infarction; Z95.5 Presence of coronary angioplasty implant and graft; Z87.891 Personal history of nicotine dependence; Z79.899 Other long term (current) drug therapy; Z79.82 Long term (current) use of aspirin; Z79.02 Long term (current) use of antithrombotics/antiplatelets
CPT/HCPCS: 36415; 71045; 71275; 74174; 76942; 80048; 80053; 80061; 81001; 82550; 82553; 83690; 83735; 84484; 85025; 85379; 86803; 87340; 87389; 87522; 87635; 93005; 93306; 93458; 93798; 93880; 94760; 96365; 96367; 96372; 96374; 96375; 99152; G0378; J0456; J0696; J1644; J1650; J2250; J3010; J3490; J7050; Q9967; U0003

== ENCOUNTER 2020-08-21 16:30 | Inpatient (IN) | payer MEDICARE, OTHER ==
--- NOTE | 2020-08-21 16:53 | RAD ---
EXAM: XR Chest Pa Lat STANDARD PROVIDED CLINICAL HISTORY: Chest pain COMPARISON: 07/27/2020 [facility] FINDINGS: Cardiac and mediastinal silhouettes is within normal limits. There is persistent small left pleural f luid. No focal consolidation or evidence for pneumothorax. IMPRESSION: Stable radiographic appearance of the chest.
[2020-08-21 17:17] LABS: #Eosinphils 0.2 thou/uL (0.0-0.7); #Lymphocytes 1.4 thou/uL (1.20-3.40); #Monocytes 0.7 thou/uL (0.11-0.59); %Basophils 0.3 % (0.0-1.0); %Eosinophils 1.7 % (0.0-10.0); %Lymphocytes 13.3 % (21.0-51.0); %Monocytes 6.9 % (0.0-10.0); %Neutrophils 77.9 % (42.0-75.0); Hemoglobin 12.3 g/dL (14.0-18.0); Mean Corpuscular HGB CONC 32.9 g/dL (32.0-36.0); Mean Corpuscular Hemoglobin 29.2 pg (27.0-31.0); Mean Corpuscular Volume 88.6 fL (78.0-98.0); Mean Platelet Volume 6.7 fL (7.4-10.4); Platelet Count 291 thou/uL (130-400); RBC Distribution Width 14.7 % (11.5-14.5); Red Blood Cell (RBC) Count 4.22 mill/uL (4.70-6.10); White Blood Cell (WBC) Count 10.3 thou/uL (4.8-10.8)
[2020-08-21 17:19] LABS: INR-International Normal Ratio 1.1; PTT 34.3 sec (22.9-36.1); Prothrombin Time 14.9 sec (12.0-14.7)
[2020-08-21 17:35] LABS: ALT (SGPT) 22 U/L (8-55); AST (SGOT) 21 U/L (5-34); Albumin 3.6 g/dL (3.4-4.8); Alkaline Phosphatase 75 U/L (40-110); Anion Gap 14 mmol/L (10-20); BUN (Urea Nitrogen) 20 mg/dL (8.4-25.7); Calc. Creatinine Clearance 0 mL/min (70-130); Calcium 9.4 mg/dL (7.8-10.44); Carbon Dioxide 23 mmol/L (23-31); Chloride 104 mmol/L (98-107); Globulin 3.6 g/dL (2.4-3.5); Glucose 113 mg/dL (80-115); Lipase 12 U/L (8-78); Potassium 3.9 mmol/L (3.5-5.1); Protein, Total 7.2 g/dL (5.8-8.1); Sodium 137 mmol/L (136-145)
[2020-08-21 17:56] LABS: CKMB 0.5 ng/mL (0-6.6)
--- NOTE | 2020-08-21 20:06 | PDOC.HHP ---
Hospitalist HPI - History of Present Illness chest pain History of Present Illness: 65 yr old male with Pmhx of HTN , HLD , Chronic Tobacco use , CAD s/p PCI with LAD stent placement , s/p repeat angiogram after presenting for chets pain 2 months ago with findings of distal LAD lesion . Patient was being managed conservatively . He developed recurrent chest pain 2 days ago , associated with feeling of fatigue and weakness. Chest pain was tightening , anterior chest wall and non radiating , He was seen by his PCP today for persistent sympotms and after discussion with Dr Zuñiga , sent to the ER . EKG shows lateral less than [address] depressions but elevated troponin at 0.2. He is being admitted for futher eval . -+ extensive family hx of CAD - father from CAD and CHF at age 80 , mother has CAD but alive at 80s -patient is a former smoker but quit since last 7 yesr after his first PCI -He is adherent to his meds with recently added Imdur for recurrent chest pain symptoms -He report his usual heart rate in the 70s after reduced coreg for bradycardia -Patient report hx of cough , SOB , fever with chills 3 weeks ago , lasting for up to 1 week symptoms . was diagnosed with Covid infection at time but patient was not tested . Those symptoms has resolved now Hospitalist History - Past Medical History Cardiac: reports: CAD, HTN, Hyperlipidemia - Past Surgical History Past Surgical History: reports: Tonsillectomy - Social History Alcohol: reports: None - Exam General Appearance: NAD, awake alert General - other findings: bearded Eye: PERRL, anicteric sclera ENT: normocephalic atraumatic, no oropharyngeal lesions, moist mucosa Neck: supple, no JVD, no carotid bruit Heart: RRR, no murmur, no rubs Respiratory: CTAB, no wheezes Gastrointestinal: soft, non-tender, non-distended, no palpable masses, no guarding Extremities: no cyanosis, no clubbing, no edema Skin: normal turgor, no lesions Neurological: cranial nerve grossly intact Musculoskeletal: normal tone, normal strength Psychiatric: normal affect, normal behavior, A&O x 3 Hospitalist Results - Labs Result Diagrams: 08/21/20 16:58 08/21/20 16:58 Lab results: WBC 10.3 thou/uL (4.8-10.8) 08/21/20 16:58 Hgb 12.3 g/dL (14.0-18.0) L 08/21/20 16:58 Hct 37.3 % (42.0-52.0) L 08/21/20 16:58 MCV 88.6 fL (78.0-98.0) 08/21/20 16:58 Plt Count 291 thou/uL (130-400) 08/21/20 16:58 Neutrophils % 77.9 % (42.0-75.0) H 08/21/20 16:58 Sodium 137 mmol/L (136-145) 08/21/20 16:58 Potassium 3.9 mmol/L (3.5-5.1) 08/21/20 16:58 Chloride 104 mmol/L (98-107) 08/21/20 16:58 Carbon Dioxide 23 mmol/L (23-31) 08/21/20 16:58 BUN 20 mg/dL (8.4-25.7) 08/21/20 16:58 Creatinine 1.18 mg/dL (0.7-1.3) 08/21/20 16:58 Glucose 113 mg/dL (80-115) 08/21/20 16:58 Calcium 9.4 mg/dL (7.8-10.44) 08/21/20 16:58 Total Bilirubin 1.0 mg/dL (0.2-1.2) 08/21/20 16:58 AST 21 U/L (5-34) 08/21/20 16:58 ALT 22 U/L (8-55) 08/21/20 16:58 Alkaline Phosphatase 75 U/L (40-110) 08/21/20 16:58 CK-MB (CK-2) 0.5 ng/mL (0-6.6) 08/21/20 16:58 Troponin I 0.235 ng/mL (< 0.028) H 08/21/20 16:58 B-Natriuretic Peptide 239.3 pg/mL (0-100) H 08/21/20 16:59 Serum Total Protein 7.2 g/dL (5.8-8.1) 08/21/20 16:58 Albumin 3.6 g/dL (3.4-4.8) 08/21/20 16:58 Lipase 12 U/L (8-78) 08/21/20 16:58 - EKG Interpretation EKG: NSR, few PACs, poor R wave progression , lateral ST dep< 1 mm in aVL, I,II - Radiology Interpretation Chest x-ray Status: image reviewed by me Additional Comment: PERSISTENT LEFT PLEURAL EFFUSION Hospitalist H&P A/P - Problem (1) Chest pain at rest Code(s): R07.9 - CHEST PAIN, UNSPECIFIED Status: Acute (2) Acute coronary syndrome Code(s): I24.9 - ACUTE ISCHEMIC HEART DISEASE, UNSPECIFIED Status: Acute (3) HTN (hypertension) Code(s): I10 - ESSENTIAL (PRIMARY) HYPERTENSION Status: Acute (4) HLD (hyperlipidemia) Code(s): E78.5 - HYPERLIPIDEMIA, UNSPECIFIED Status: Acute (5) COVID-19 ruled out Code(s): Z20.822 - CONTACT WITH AND (SUSPECTED) EXPOSURE TO COVID-19 Status: Acute - Plan Plan: Acute coronary syndrome - elevated troponin noted -Cardiology d/w , follow full eval in am - may need CABG given location of distal LAD lesions and associated disease - will dose nitro patch now - resume Imdur /Coreg/ - will start low dose lovenox for now -resume Aspirin and Plavix -No loading dose of Plavix for now HTN -controlled , follow HLD- resume statins and zetia Recent Presumed Covid infection - obtain covid 19 screenign test DVT prop- as above -on lovenox Advance directive -do full code
[2020-08-21] MEDS ORDERED: Calcium Carbonate 500 MG ChewTAB PO PRN (20:15)
[2020-08-21] MEDS ORDERED: Acetaminophen 325 MG TAB PO PRN (20:15)
[2020-08-21] MEDS ORDERED: Morphine 2 MG/ML VIAL SLOW IVP PRN (20:15)
[2020-08-21] MEDS ORDERED: Zolpidem Tartrate 5 MG TAB PO PRN (20:15)
[2020-08-21] MEDS ORDERED: Ondansetron PF 4 MG/2 ML Vial IVP PRN (20:15)
[2020-08-21] MEDS ORDERED: Nitroglycerin 0.4 MG TAB (25 Tab Bottle) SL PRN (20:15)
[2020-08-21] MEDS ORDERED: Enoxaparin Sodium 100 MG/ML SYRINGE ONE (20:16)
[2020-08-21 23:22] LABS: Troponin I 0.179 ng/mL (< 0.028)
[2020-08-21 23:41] VITALS: BMI 26.2
[2020-08-22] MEDS: Nitroglycerin 2% Ointment 1 INCH/1 GM Packet TOP SCH ×4 (00:23→20:59)
[2020-08-22 04:53] LABS: #Eosinphils 0.1 thou/uL (0.0-0.7); #Lymphocytes 1.5 thou/uL (1.20-3.40); #Monocytes 0.9 thou/uL (0.11-0.59); #Neutrophils 5.8 thou/uL (1.40-6.50); %Basophils 0.2 % (0.0-1.0); %Eosinophils 1.4 % (0.0-10.0); %Lymphocytes 17.6 % (21.0-51.0); %Monocytes 10.9 % (0.0-10.0); %Neutrophils 69.9 % (42.0-75.0); Hemoglobin 10.6 g/dL (14.0-18.0); Mean Corpuscular HGB CONC 33.2 g/dL (32.0-36.0); Mean Corpuscular Hemoglobin 29.2 pg (27.0-31.0); Mean Corpuscular Volume 88.1 fL (78.0-98.0); Mean Platelet Volume 6.5 fL (7.4-10.4); Platelet Count 264 thou/uL (130-400); RBC Distribution Width 14.5 % (11.5-14.5); Red Blood Cell (RBC) Count 3.63 mill/uL (4.70-6.10); White Blood Cell (WBC) Count 8.3 thou/uL (4.8-10.8)
[2020-08-22 05:18] LABS: Anion Gap 13 mmol/L (10-20); BUN (Urea Nitrogen) 21 mg/dL (8.4-25.7); Calc. Creatinine Clearance 92 mL/min (70-130); Calcium 8.7 mg/dL (7.8-10.44); Carbon Dioxide 23 mmol/L (23-31); Cardiac Risk 3.3 (Less than 4.5); Chloride 107 mmol/L (98-107); Cholesterol 115 mg/dl (< 200 Desired); Glucose 107 mg/dL (80-115); HDL Cholesterol 35 mg/dL (>60 Neg Risk); LDL Cholesterol, Calculated 66 mg/dL; Sodium 139 mmol/L (136-145); Triglycerides 72 mg/dL (Less than 150)
[2020-08-22] MEDS ORDERED: Clopidogrel Bisulfate 75 MG TAB PO SCH ×2 (09:00)
[2020-08-22] MEDS ORDERED: Aspirin 325 mg Enteric Coated Tablet PO SCH (09:00)
[2020-08-22] MEDS: Lisinopril 20 MG TAB PO SCH (09:01)
[2020-08-22] MEDS: Atorvastatin Calcium 40 MG TAB PO SCH (09:02)
[2020-08-22] MEDS: Ezetimibe 10 MG TAB PO SCH (09:02)
[2020-08-22] MEDS: Ubidecarenone 50 MG CAP PO SCH (09:03)
[2020-08-22] MEDS: Enoxaparin Sodium 60 MG/0.6 ML SYRINGE SC SCH ×2 (09:04→20:58)
[2020-08-22 09:33] LABS: SARS-CoV-2 MS2 Positive; SARS-CoV-2 N Gene Positive; SARS-CoV-2 S Gene Negative; SARS-CoV-2 by NAA DETECTED (NotDetected); SARS-CoV-2 orf1ab Positive
[2020-08-22] MEDS ORDERED: TICAGRELOR 90 MG TABLET PO SCH (11:15)
[2020-08-22] MEDS ORDERED: NIFEdipine XL 90 MG TAB PO SCH (13:00)
[2020-08-22] MEDS ORDERED: Communication Order-Pharmacy FS SCH (14:00)
[2020-08-22] MEDS ORDERED: Diazepam 5 MG TAB PO SCH (14:00)
--- NOTE | 2020-08-22 15:30 | CON ---
DATE OF CONSULTATION: 08/22/2020 REASON FOR CONSULTATION: Acute non-ST elevation myocardial infarction. HISTORY OF PRESENT ILLNESS: Mr. Moises Gasca is a 65-year-old gentleman. He initially presented with severe chest pain critically ill in 2012, was found to be having an anterior myocardial infarction. He was taken emergently to the cardiac catheterization lab, where he had an occluded LAD which was successfully stented. He did very well following that. He re-presented with recurrent chest pain in June, heart catheterization revealed left main normal, LAD stent patent proximally, occluded in the mid LAD. The distal vessel filled very poorly by collaterals. Circumflex, no obstructive stenosis. Right coronary 40% to 50%. Mid stenosis did not appear to be flow-limiting. The posterior descending artery had a stenosis approximately third of the way down to chcf down the vessel, but the PDA did collateralize some of the LAD distribution. The patient did well following that. He also had an ejection fraction of 40%. We did notice some fatigue with exertion, shortness of breath with exertion, but the last few days he has had increasing amounts of pain and pressure in his chest. Finally, he had a severe episode of pain associated with ST depression in the lateral leads, it did not get better with nitroglycerin. He ultimately came to the hospital, where he was hospitalized, given Lovenox, nitrates and ultimately, the pain resolved. He is feeling fine now. The patient quit smoking in June. The patient had COVID syndrome approximately 6 weeks ago. His had COVID and was swabbed to be positive, then he also had a flu-like illness and loss of taste. The assumption was that he had COVID at that point. He did not get swabbed, but it was the assumption. For the last month, he has been asymptomatic from the COVID standpoint. MEDICATIONS: 1. Procardia XL 90 mg a day. 2. Coreg 6.25 mg twice a day, 12.5 mg twice a day caused bradycardia. 3. Lisinopril 40 mg a day. 4. Atorvastatin 40 mg a day. 5. Plavix 75 mg a day. 6. Aspirin 325 mg a day. 7. Isosorbide 30 mg a day. ALLERGIES: NONE KNOWN. SOCIAL HISTORY: Quit smoking. PHYSICAL EXAMINATION: GENERAL: This is a pleasant gentleman, no distress. VITAL SIGNS: Blood pressure 139/77, pulse 79 and regular. HEENT: Eyes; sclerae nonicteric. Mouth; mucous membranes moist. NECK: Supple. No lymphadenopathy. LUNGS: Clear. CARDIAC: Normal S1, normal S2. There is no murmur, rub, or gallop. ABDOMEN: Soft and nontender. No hepatosplenomegaly. LABORATORY DATA: BNP 239. LDL cholesterol 66. EKG did show some ST depression in the lateral leads with pain. ASSESSMENT: History of ST-elevation myocardial infarction treated with stent in 2012. Catheterization in June of 2020 beginning of that month with findings as outlined above. Catheterization was done 06/18/2020. Non-ST elevation infarction. I reviewed the cardiac catheterization films again. I think most likely the culprit lesion is the stenosis in the posterior descending artery which also collateralizes some of his LAD distribution. The patient has had ongoing pain despite aggressive medical therapy and dual anti-platelet therapy. I did change to a stronger anti-platelet combination, but it seems unlikely it is going to really solve all his problem and with the angina, stent implantation would be appropriate. Did discuss with this gentleman that due to the distal nature of the disease, it is possible the stent cannot be delivered. Because of the high probability, we can at least balloon dilate that area. Discussed risks of the procedure, stroke, heart attack, iodine allergy, loss of blood flow to the leg or kidney, stent thrombosis, stent restenosis were all discussed, inability to deploy the stent more distally all discussed in view of the ongoing chest pain. He understands and wishes to proceed. Job ID: [id number] MTDD
[2020-08-22] MEDS ORDERED: Nitroglycerin 2% Ointment 1 INCH/1 GM Packet ONE (15:47)
[2020-08-22] MEDS: Carvedilol 3.125 MG TAB PO SCH (15:57)
--- NOTE | 2020-08-22 16:25 | PDOC.HOSPP ---
- Subjective Encounter Date: 08/22/20 Encounter Time: 13:00 Subjective: F/u : chest pain, COVID The patient tested COVID + . He states he developed myalgias, cough, shortness of breath in June and lost his sense of smell. He quarantined for two weeks. He had chest pain worst with taking a deep breath and took two courses of prednisone in July which helped. His had COVID too and is still recovering with a lingering cough This chest pain felt differently however so he came to the hospital. He denies pain on exertion. He stated the nitro did not really relieve his chest pain. He does get short of breath on exertion. He quit smoking . He denies fevers, chills or cough - Objective Vital Signs & Weight: Vital Signs (12 hours) Temp Pulse Resp BP Pulse Ox 08/22/20 15:14 97.6 F 87 16 138/68 08/22/20 14:46 79 08/22/20 10:55 99.1 F 79 16 139/77 08/22/20 08:50 98.2 F 76 16 129/65 97 Weight Weight 215 lb 4.8 oz I&O: 08/21/20 08/22/20 08/23/20 06:59 06:59 06:59 Intake Total 360 Balance 360 Result Diagrams: 08/22/20 04:39 08/22/20 04:39 Hospitalist ROS - Review of Systems Constitutional: denies: fever, chills - Medication Medications: Active Medications Generic Name Dose Route Start Last Admin Trade Name Freq PRN Reason Stop Dose Admin Atorvastatin Calcium 40 mg 08/22/20 09:00 08/22/20 09:02 Atorvastatin Calcium 40 Mg Tab PO 40 mg DAILY ANGELO Administration Carvedilol 3.125 mg 08/22/20 17:00 08/22/20 15:57 Carvedilol 3.125 Mg Tab PO 3.125 mg BID-WM ANGELO Administration Coenzyme Q10 200 mg 08/22/20 09:00 08/22/20 09:03 Ubidecarenone 50 Mg Cap PO 200 mg DAILY ANGELO Administration Ezetimibe 10 mg 08/22/20 09:00 08/22/20 09:02 Ezetimibe 10 Mg Tab PO 10 mg DAILY ANGELO Administration Enoxaparin Sodium 60 mg 08/22/20 09:00 08/22/20 09:04 Enoxaparin Sodium 60 Mg/0.6 Ml Syringe SC 08/22/20 22:00 60 mg 0900,2100 [facility] Administration Lisinopril 40 mg 08/22/20 09:00 08/22/20 09:01 Lisinopril 20 Mg Tab PO 40 mg DAILY ANGELO Administration Nitroglycerin 0.5 inch 08/21/20 22:00 08/22/20 14:47 Nitroglycerin 2% Ointment 1 Inch/1 Gm Packet TOP 0.5 inch Q8HR ANGELO Administration - Exam General Appearance: NAD, awake alert Eye: PERRL, anicteric sclera ENT: normocephalic atraumatic, no oropharyngeal lesions Neck: no JVD Heart: RRR, no murmur, no gallops, no rubs Respiratory: CTAB, no wheezes, no rales Gastrointestinal: soft, non-tender, non-distended, normal bowel sounds Extremities: no cyanosis, no clubbing, no edema Skin: normal turgor, no lesions, no rashes Neurological: cranial nerve grossly intact, normal sensation to touch, no weakness Musculoskeletal: normal tone, normal strength, no muscle wasting Psychiatric: normal affect, normal behavior, A&O x 3 Hosp A/P - Plan This is a 65 year old female who presented to the hospital with chest pain, found to have positive troponins NSTEMI - continue aspirin. Plavix discontinued and switched to ticagrelor. Continue therapeutic lovenox - troponins were elevated, but downtrending. ECHO has been ordered Hypertension - controlled - continue nitro patch, coreg, lisinopril, nifedipine COVID+ - patient removed off isolation since he quarantined for two weeks last month Anemia - Hb 10
[2020-08-22] MEDS: TICAGRELOR 90 MG TABLET PO SCH (20:58)
[2020-08-23 05:06] LABS: Hemoglobin 11.2 g/dL (14.0-18.0); Mean Corpuscular HGB CONC 33.2 g/dL (32.0-36.0); Mean Corpuscular Hemoglobin 29.5 pg (27.0-31.0); Mean Corpuscular Volume 88.6 fL (78.0-98.0); Mean Platelet Volume 6.7 fL (7.4-10.4); Platelet Count 273 thou/uL (130-400); RBC Distribution Width 14.5 % (11.5-14.5); White Blood Cell (WBC) Count 6.2 thou/uL (4.8-10.8)
[2020-08-23] MEDS: Ezetimibe 10 MG TAB PO SCH (05:07)
[2020-08-23] MEDS: NIFEdipine XL 90 MG TAB PO SCH (05:07)
[2020-08-23] MEDS: Lisinopril 20 MG TAB PO SCH (05:07)
[2020-08-23] MEDS: Aspirin 81 mg Enteric Coated Tablet PO SCH (05:08)
[2020-08-23] MEDS: TICAGRELOR 90 MG TABLET PO SCH ×2 (05:08→21:02)
[2020-08-23] MEDS: Carvedilol 3.125 MG TAB PO SCH ×2 (05:08→15:56)
[2020-08-23] MEDS: Nitroglycerin 2% Ointment 1 INCH/1 GM Packet TOP SCH ×3 (05:09→22:09)
[2020-08-23] MEDS: Ubidecarenone 50 MG CAP PO SCH (05:09)
[2020-08-23] MEDS: Atorvastatin Calcium 40 MG TAB PO SCH (05:09)
[2020-08-23 05:36] LABS: Anion Gap 15 mmol/L (10-20); BUN (Urea Nitrogen) 18 mg/dL (8.4-25.7); Calc. Creatinine Clearance 102 mL/min (70-130); Calcium 8.7 mg/dL (7.8-10.44); Carbon Dioxide 23 mmol/L (23-31); Chloride 107 mmol/L (98-107); Glucose 95 mg/dL (80-115); Potassium 3.9 mmol/L (3.5-5.1); Sodium 141 mmol/L (136-145)
[2020-08-23] MEDS ORDERED: Sodium Chloride 0.9% 1,000 ML IV SCH (06:00)
[2020-08-23] MEDS ORDERED: Aspirin 325 mg Enteric Coated Tablet PO SCH (09:00)
[2020-08-23] MEDS ORDERED: Midazolam HCl 2 mg/2 ml Vial ONE (10:00)
--- NOTE | 2020-08-23 15:48 | PDOC.HOSPP ---
- Subjective Encounter Date: 08/23/20 Encounter Time: 08:00 Subjective: F/u: chest pain The patient is s/p cardiac cath today with PCI to the posterior descending coronary artery . He denies chest pain or shortness of breath - Objective Vital Signs & Weight: Vital Signs (12 hours) Temp Pulse Resp BP Pulse Ox 08/23/20 15:31 98.1 F 75 20 164/81 H 99 08/23/20 06:56 98.6 F 77 18 113/68 96 08/23/20 05:15 98.8 F 75 19 131/66 96 Weight Weight 215 lb 4.8 oz I&O: 08/22/20 08/23/20 08/24/20 06:59 06:59 06:59 Intake Total 360 850 240 Balance 360 850 240 Result Diagrams: 08/23/20 04:28 08/23/20 04:28 Hospitalist ROS - Review of Systems Constitutional: denies: fever, chills - Medication Medications: Active Medications Generic Name Dose Route Start Last Admin Trade Name Tomasq PRN Reason Stop Dose Admin Aspirin 81 mg 08/23/20 09:00 08/23/20 05:08 Aspirin 81 Mg Enteric Coated Tablet PO 81 mg DAILY ANGELO Administration Atorvastatin Calcium 40 mg 08/22/20 09:00 08/23/20 05:09 Atorvastatin Calcium 40 Mg Tab PO 40 mg DAILY ANGELO Administration Carvedilol 3.125 mg 08/22/20 17:00 08/23/20 05:08 Carvedilol 3.125 Mg Tab PO 3.125 mg BID-WM ANGELO Administration Coenzyme Q10 200 mg 08/22/20 09:00 08/23/20 05:09 Ubidecarenone 50 Mg Cap PO 200 mg DAILY ANGELO Administration Diazepam 5 mg 08/22/20 14:00 08/23/20 07:59 Diazepam 5 Mg Tab PO 08/23/20 23:00 5 mg WILLCALL ANGELO Administration Ezetimibe 10 mg 08/22/20 09:00 08/23/20 05:07 Ezetimibe 10 Mg Tab PO 10 mg DAILY ANGELO Administration Lisinopril 40 mg 08/22/20 09:00 08/23/20 05:07 Lisinopril 20 Mg Tab PO 40 mg DAILY ANGELO Administration Nifedipine 90 mg 08/23/20 09:00 08/23/20 05:07 Nifedipine Xl 90 Mg Tab PO 90 mg DAILY ANGELO Administration Nitroglycerin 0.5 inch 08/21/20 22:00 08/23/20 05:09 Nitroglycerin 2% Ointment 1 Inch/1 Gm Packet TOP 0.5 inch Q8HR ANGELO Administration Ticagrelor 90 mg 08/22/20 21:00 08/23/20 05:08 Ticagrelor 90 Mg Tablet PO 90 mg BID ANGELO Administration - Exam General Appearance: NAD, awake alert Eye: PERRL, anicteric sclera ENT: normocephalic atraumatic, no oropharyngeal lesions Neck: supple, symmetric, no JVD Heart: RRR, no murmur, no gallops, no rubs Respiratory: CTAB, no wheezes, no rales, no ronchi Gastrointestinal: soft, non-tender, non-distended, normal bowel sounds Gastrointestinal - other findings: cath in the right groin Extremities: no cyanosis, no clubbing, no edema Skin: normal turgor, no lesions, no rashes Neurological: cranial nerve grossly intact, normal sensation to touch, no weakness Hosp A/P - Plan This is a 65 year old female who presented to the hospital with chest pain, found to have positive troponins NSTEMI s/p PCI to the posterior descending coronary artery - patient is s/p cardiac cath today with CELINA to the posterior descending coronar y artery - continue aspirin, ticagrelor. Lovenox has been discontinued - will monitor overnight, likely discharge tomorrow Hypertension - controlled - continue nitro patch, coreg, lisinopril, nifedipine COVID+ - patient removed off isolation since he quarantined for two weeks last month Anemia - Hb 11, stable
[2020-08-24 05:29] LABS: #Eosinphils 0.2 thou/uL (0.0-0.7); #Monocytes 0.5 thou/uL (0.11-0.59); #Neutrophils 3.6 thou/uL (1.40-6.50); %Basophils 0.3 % (0.0-1.0); %Eosinophils 4.2 % (0.0-10.0); %Monocytes 10.1 % (0.0-10.0); %Neutrophils 67.5 % (42.0-75.0); Hemoglobin 11.6 g/dL (14.0-18.0); Mean Corpuscular HGB CONC 32.6 g/dL (32.0-36.0); Mean Corpuscular Hemoglobin 28.9 pg (27.0-31.0); Mean Corpuscular Volume 88.6 fL (78.0-98.0); Mean Platelet Volume 6.5 fL (7.4-10.4); Platelet Count 301 thou/uL (130-400); RBC Distribution Width 14.5 % (11.5-14.5); Red Blood Cell (RBC) Count 4.03 mill/uL (4.70-6.10); White Blood Cell (WBC) Count 5.4 thou/uL (4.8-10.8)
[2020-08-24 05:48] LABS: ALT (SGPT) 44 U/L (8-55); AST (SGOT) 29 U/L (5-34); Albumin 3.2 g/dL (3.4-4.8); Alkaline Phosphatase 69 U/L (40-110); Anion Gap 14 mmol/L (10-20); BUN (Urea Nitrogen) 14 mg/dL (8.4-25.7); Bilirubin, Total 0.4 mg/dL (0.2-1.2); Calc. Creatinine Clearance 105 mL/min (70-130); Carbon Dioxide 24 mmol/L (23-31); Chloride 107 mmol/L (98-107); Globulin 3.4 g/dL (2.4-3.5); Glucose 91 mg/dL (80-115); Potassium 4.1 mmol/L (3.5-5.1); Protein, Total 6.6 g/dL (5.8-8.1); Sodium 141 mmol/L (136-145)
[2020-08-24] MEDS: Nitroglycerin 2% Ointment 1 INCH/1 GM Packet TOP SCH (06:21)
[2020-08-24] MEDS: Ubidecarenone 50 MG CAP PO SCH (08:34)
[2020-08-24] MEDS: NIFEdipine XL 90 MG TAB PO SCH (08:37)
[2020-08-24] MEDS: Carvedilol 3.125 MG TAB PO SCH (08:38)
[2020-08-24] MEDS: TICAGRELOR 90 MG TABLET PO SCH (08:38)
[2020-08-24] MEDS: Aspirin 81 mg Enteric Coated Tablet PO SCH (08:39)
[2020-08-24] MEDS: Atorvastatin Calcium 40 MG TAB PO SCH (08:39)
[2020-08-24] MEDS: Ezetimibe 10 MG TAB PO SCH (08:39)
[2020-08-24] MEDS: Lisinopril 20 MG TAB PO SCH (08:40)
[2020-08-24 12:18] VITALS: BP 153/81; TEMP 98.4
[2020-08-24] MEDS ORDERED: Carvedilol 3.125 MG TAB PO SCH (17:00)
--- NOTE | 2020-08-24 18:37 | PDOC.DS.DS ---
Provider - Provider Date of Admission: 08/21/20 18:32 Date of Discharge: 08/24/20 Admitting Provider: Chepe Rose MD Consultations: Cardiology (Dr. Zuñiga) Primary Care Physician: Roger Salazar MD Course - Hospital Course Hospital Course: Discharge Diagnoses: NSTEMI Hypertension History of COVID+ Brief HPI: This is a 65 year old with diabetes, hypertension, tobacco abuse, CAD s/p PCI who presented to the hospital with chest pain. He did have COVID two months ago and quarantined for two weeks. He reported taking two course of prednisone with relief of his chest pain but his chest pain had since reoccurred and felt different. He went to see his PCP who called Dr. Zuñiga who advised him to come to the ER. His EKG showed ST depressions and troponin was midly elevated at 0.2. He was admitted for further workup . Hospital Course: NSTEMI: the patient underwent a cardiac cath which showed a 80% lesion of his posterior descending artery. He had CELINA stent placement to the PDA. His plavix was switched to ticagrelor. He will be discharged on aspirin, ticagrelor, coreg, lisinopril and imdur. Dr. Zuñiga provided him with a sample for three weeks. His groin site looked unremarkable. He will follow up with his PCP and Dr. Zuñiga on September 06. Consider a refill at that time. COVID+: he tested COVID+ here, but since this was likely from his prior infection, he remained off isolation. Anemia: Hb is 11, consider outpatient follow up and colonoscopy Pertinent Studies: Chest x ray 08/21: stable radiographic appearance of the chest Cardiac cath: RCA 40-50%, mid PDA 80%, LVEF 45%, mild apical hypokinesis. Proximal LAD stent patent, mid LAD old occlusion. Left main normal. Circumflex no significant stenosis Procedures: Cardiac cath 08/23 Resuscitation Status: 08/21/20 20:15 Resuscitation Status Routine Resuscitation Status: FULL: Full Resuscitation - Labs Lab Results: 08/24/20 04:32 08/24/20 04:32 Abnormal Lab Results - Last 48 hrs 08/23/20 04:28: RBC 3.80 L, Hgb 11.2 L, Hct 33.6 L, MPV 6.7 L 08/23/20 13:29: Activated Clotting Time 142 H 08/24/20 04:32: Albumin 3.2 L, Albumin/Globulin Ratio 0.9 L 08/24/20 04:32: RBC 4.03 L, Hgb 11.6 L, Hct 35.7 L, MPV 6.5 L, Lymphocytes % 18.0 L, Monocytes % 10.1 H, Lymphocytes # 1.0 L - Physical Exam Vitals: Vital Signs (12 hours) Temp Pulse Pulse Pulse Resp BP BP 08/24/20 11:50 98.4 F 80 20 08/24/20 09:20 69 78 162/112 H 189/84 H 08/24/20 08:15 98.2 F 76 22 H 08/24/20 07:02 86 BP Pulse Ox Pulse Ox 08/24/20 11:50 153/81 H 99 08/24/20 09:20 99 08/24/20 08:15 141/65 H 100 08/24/20 07:02 164/80 H Weight Weight 215 lb 4.8 oz Physical Exam: The patient was seen and examined on the day of discharge. General Appearance: NAD, awake alert Eye: PERRL, anicteric sclera ENT: normocephalic atraumatic, no oropharyngeal lesions Neck: supple, symmetric, no JVD Heart: RRR, no murmur, no gallops, no rubs Respiratory: CTAB, no wheezes, no rales, no ronchi Gastrointestinal: soft, non-tender, non-distended, normal bowel sounds Gastrointestinal - other findings: cath in the right groin Extremities: no cyanosis, no clubbing, no edema Skin: normal turgor, no lesions, no rashes Neurological: cranial nerve grossly intact, normal sensation to touch, no weakness Plan - Discharge Medications Prescriptions: Ticagrelor [Brilinta] 90 mg PO BID #90 tab Home Medications: Medication Instructions Recorded Confirmed Type Aspirin [Aspirin EC] 325 mg PO DAILY 07/13/13 08/22/20 History Atorvastatin Calcium [Lipitor] 40 mg PO HS 07/13/13 08/22/20 History Clopidogrel Bisulfate [Plavix] 75 mg PO DAILY 07/13/13 08/22/20 History Lisinopril 40 mg PO DAILY 07/13/13 08/22/20 History Ascorbic Acid [Vitamin C] 500 mg PO BID 06/14/20 08/22/20 History Multivitamin [Multi-Vitamin Daily] 1 mg PO DAILY 06/14/20 08/22/20 History NIFEdipine [Nifedipine ER] 90 mg PO DAILY 06/14/20 08/22/20 History Ubidecarenone [Co Q-10] 200 mg PO BID 06/14/20 08/22/20 History Carvedilol [Coreg] 6.25 mg PO BID 08/22/20 08/22/20 History Cholecalciferol (Vitamin D3) 100 mcg PO HS 08/22/20 08/22/20 History [Vitamin D3] Ezetimibe [Zetia] 10 mg PO HS 08/22/20 08/22/20 History Isosorbide Dinitrate 30 mg PO QAM 08/22/20 08/22/20 History Magnesium Citrate 250 mg PO QAM 08/22/20 08/22/20 History Magnesium Oxide [Magnesium] 500 mg PO HS 08/22/20 08/22/20 History Melatonin 1 mg PO HS 08/22/20 08/22/20 History Ticagrelor [Brilinta] 90 mg PO BID #90 tab 08/24/20 Rx Allergies: No Known Drug Allergies Allergy (Verified 08/22/20 00:00) - Discharge Instructions Discharge Instructions:: You had a mild heart attack. You had an approximate 80% lesion in your posterior descending artery. You had drug eluting stent placement. Please take ticagrelor twice daily and stop taking your plavix. Continue all of your other home medicines. Follow up with Dr. Zuñiga on September 06. Come back to the hospital if you have severe chest pain, left arm pain, sweating, heart racing, dizziness or you pass out. You are anemic. Consider further outpatient workup. Get a colonoscopy if you haven't had one already. Activity:: Activity as Tolerated Nourishment:: Heart Healthy Diet - Follow up Plan Referrals: Cardiac Rehab - [facility] [Outside] - 7 Days (Your doctor has ordered outpatient cardiac rehab for you to begin within 1-2 weeks after you go home from the hospital. The location nearest to you is the [facility]. The front office in [place] will call you in 3-5 days to get you scheduled for your evaluation. If you do not receive a call, please reach out to us at [phone] and request an appointment. ) Roger Salazar MD [Primary Care Provider] - 08/30/20 11:15 am Wing Zuñiga MD [Active] - 09/06/20 11:00 am Disposition: HOME Quality - Care Measures CORE MEASURES:: AMI - Stroke/TIA Did you prescribe antithrombotic therapy?: No Specify reason for no DC antithrombotic therapy: Treatment not indicated
--- NOTE | 2020-08-27 06:26 | PQF ---
CLINICAL DOCUMENTATION CLARIFICATION FORM: Dear : Cindy Greco Date / Time: 08/27/20 06:26 Please exercise your independent, professional judgment in responding to the clarification form. Clinical indicators are provided on the bottom of this form for your review COVID 19 Clarification and Manifestations: Please check appropriate box(es): A. COVID 19 virus diagnosis Validation: [ ] COVID-19 is ruled in (if so, please provide the evidence used to support this diagnosis) [ ] COVID-19 has been ruled out [ X] History of Covid19 only [ ] Other explanation of clinical findings [ ] Unable to determine Physician Signature: Date/Time: For continuity of documentation, please document condition throughout progress notes and discharge summary. Thank You. To be completed by CDI/Coding staff for physician review: Present Clinical Indicators - Signs / Symptoms / Labs Results and Location in Medical Record [x] History of COVID DS 08/21 [x] Covid+ he tested covid+ here, but since this was likely from his prior infection, he remained off isolation DS 08/21 [x] Chest xray: stable Chest Xray 08/21 [x] Covid19 ruled out HP 08/21 [x] Covid syndrome Consult 08/22 [x] Covid+ PN 08/22 [x] WBC: 08/21=10.3 08/24=5.4 Laboratory 08/21 [x] SARS COV2= detected Laboratory 08/21 Present Risk Factors Results and Location in Medical Record [x] 65 years old male DS 08/21 [x] DM DS 08/21 [x] Former smoker DS 08/21 Present Treatments Results and Location in Medical Record [x] IVF OCT 15 [x] Laboratory Monitoring Laboratory 08/21 [facility] [employer] Signature: Gisella Toribio Phone #: [phone] Date/Time: 08/27/20 This is a permanent part of the Medical Record [facility]
--- NOTE | 2020-09-01 10:03 | EKG ---
Test Reason : Blood Pressure : / mmHG Vent. Rate : 079 BPM Atrial Rate : 079 BPM P-R Int : 142 ms QRS Dur : 100 ms QT Int : 360 ms P-R-T Axes : 022 -60 121 degrees QTc Int : 412 ms Sinus rhythm with Premature atrial complexes Left anterior fascicular block Septal infarct , age undetermined Left atrial enlargement Abnormal ECG Confirmed by TRAN ROSS, SHANNON Albert ([id number]), scientific publications editor SHIRA LOUIS ([id number]) on 09/01/2020 10:02:49 AM Referred By: Confirmed By:SHANNON MAYFIELD MD
== END 2020-08-24 13:23 | disposition home or self-care (01) | DRG 247 ==
LOC: ERS 16:30 → OBSVTOIN 18:32 → ERHOLD 18:32 → 2NO 23:38 → 2SW 08-22 10:52
PROVIDERS: ADMIT Internal Medicine; ATTEND Internal Medicine
PROC: 027034Z Dilation of Coronary Artery, One Artery with Drug-eluting Intraluminal Device, Percutaneous Approach (ICD-10-PCS; principal; 2020-08-23)
PROC: 4A023N7 Measurement of Cardiac Sampling and Pressure, Left Heart, Percutaneous Approach (ICD-10-PCS; 2020-08-23)
PROC: B2111ZZ Fluoroscopy of Multiple Coronary Arteries using Low Osmolar Contrast (ICD-10-PCS; 2020-08-23)
PROC: B2151ZZ Fluoroscopy of Left Heart using Low Osmolar Contrast (ICD-10-PCS; 2020-08-23)
PROC: 4A033BC Measurement of Arterial Pressure, Coronary, Percutaneous Approach (ICD-10-PCS; 2020-08-23)
DX: I21.4 Non-ST elevation (NSTEMI) myocardial infarction (principal); I24.9 Acute ischemic heart disease, unspecified; I10 Essential (primary) hypertension; E78.5 Hyperlipidemia, unspecified; I25.10 Atherosclerotic heart disease of native coronary artery without angina pectoris; D64.9 Anemia, unspecified; I25.2 Old myocardial infarction; Z95.5 Presence of coronary angioplasty implant and graft; Z79.01 Long term (current) use of anticoagulants; Z79.82 Long term (current) use of aspirin; Z87.891 Personal history of nicotine dependence; Z86.16 Personal history of COVID-19
CPT/HCPCS: 36415; 71046; 76942; 80048; 80053; 80061; 82553; 83690; 83880; 84484; 85025; 85027; 85347; 85610; 85730; 87635; 92928; 93005; 93010; 93458; 93798; 94760; 96372; 99152; 99153; C1874; C9600; J1644; J1650; J2250; U0003